=== PATIENT | female | born 2005 | race Caucasian/White ===

== ENCOUNTER 2024-04-14 17:39 | Emergency (ER) | payer SELFPAY ==
[~2024-04-14] VITALS: Ht 170.2 cm; Wt 54.1 kg
[2024-04-14 17:44] VITALS: PULSE 118
[2024-04-14] MEDS ORDERED: normal saline 1000ML IV soln IVB ONE (18:35)
[2024-04-14] MEDS ORDERED: piperacillin/tazo 3.375gm/50ml 50 ML IV ONE (18:43)
[2024-04-14 18:48] LABS: BASOPHILS # (AUTO) 0.1 X10'3 (0-0.2); BASOPHILS % (AUTO) 0.4 % (0-1); EOSINOPHILS % (AUTO) 0.2 % (0-6); HEMATOCRIT 37.4 % (35.0-45.0); HEMOGLOBIN 12.1 g/dl (12.0-16.0); LYMPHOCYTES # (AUTO) 2.2 X10'3 (1.1-4.8); LYMPHOCYTES % (AUTO) 12.5 % (21-51); MEAN CORPUSCULAR HEMOGLOBIN 27.6 PG (27.0-31.0); MEAN CORPUSCULAR HGB CONC 32.5 g/dL (33.0-36.5); MEAN PLATELET VOLUME 8.7 FL (7.4-10.4); MONOCYTES # (AUTO) 1.2 X10'3 (0-0.9); NEUTROPHILS % (AUTO) 79.9 % (42-75); PLATELET COUNT 255 X10'3 (140-440); RED CELL DISTRIBUTION WIDTH 14.7 % (11.5-14.5); WHITE BLOOD COUNT 17.5 X10'3 (4.5-11.0)
[2024-04-14 18:56] LABS: ALBUMIN 3.3 G/DL (3.4-5.0); ANION GAP 10 (8-16); BLOOD UREA NITROGEN 8 MG/DL (7-18); CALCIUM 8.8 MG/DL (8.5-10.1); CHLORIDE 98 MMOL/L (99-107); CREATININE 1.14 MG/DL (0.40-0.90); GLUCOSE 91 MG/DL (70-104); POTASSIUM 3.5 MMOL/L (3.5-5.1); SODIUM 135 MMOL/L (135-145); TOTAL CARBON DIOXIDE 26.9 MMOL/L (24-32); eCRCL 68 ML/MIN; eGFR 61 ML/MIN
[2024-04-14 19:15] LABS: ALANINE AMINOTRANSFERASE 17 U/L (12-78); ALBUMIN/GLOBULIN RATIO 0.8 (1.1-1.5); ALKALINE PHOSPHATASE 118 IU/L (20-180); ASPARTATE AMINO TRANSFERASE 9 U/L (10-37); BILIRUBIN,DIRECT 0.1 MG/DL (0-0.3); BILIRUBIN,TOTAL 0.6 MG/DL (0.1-1.0); C-REACTIVE PROTEIN 5.99 MG/DL (0.0-0.5); TOTAL PROTEIN 7.6 G/DL (6.4-8.2)
[2024-04-14 19:29] VITALS: BP 120/78; RESP 15; TEMP 100; O2SAT 98
[2024-04-14 19:29] LABS: APTT 30 SECONDS (22-32); INR 1.1 INR; PROTHROMBIN TIME 11.3 SECONDS (9.0-12.0)
== END 2024-04-14 19:30 | disposition left against medical advice (07) ==
LOC: ER 17:40
DX: M25.562 Pain in left knee (principal); Z59.00 Homelessness unspecified
CPT/HCPCS: 36415; 80048; 80076; 83605; 84145; 85025; 85610; 85651; 85730; 86140; 87040; 99283

== ENCOUNTER 2024-04-15 08:35 | Emergency (ER) | payer SELFPAY ==
[~2024-04-15] VITALS: Ht 162.6 cm; Wt 55.0 kg
[2024-04-15 08:48] VITALS: BP 101/59; PULSE 104; RESP 20; TEMP 98.8; O2SAT 96
== END 2024-04-15 09:34 | disposition left against medical advice (07) ==
LOC: ER 08:36
DX: L02.416 Cutaneous abscess of left lower limb (principal); Z53.21 Procedure and treatment not carried out due to patient leaving prior to being seen by health care provider